=== PATIENT | male | born 1995 | race Caucasian/White ===

== ENCOUNTER 2021-05-30 14:36 | Outpatient (CLI) | payer OTHER, SELFPAY ==
[2021-05-30 15:17] LABS: Appearance Urine Clear (Clear); Basophils Absolute Auto 0.1 K/mm3 (0.0-0.1); Basophils Percent Auto 0.8 % (0.2-1.2); Bilirubin Urine 1+ (Negative); Blood Urine Negative (Negative); Color Urine Yellow (Yellow); Eosinophils Absolute Auto 0.1 K/mm3 (0-0.3); Eosinophils Percent Auto 1.1 % (0-4.4); Glucose Urine UA Negative (Negative); Hematocrit 48.2 % (42.0-52.0); Hemoglobin 16.5 g/dL (14.0-18.0); Immature Granulocyte Absolute 0.01 K/mm3 (0.00-0.031); Immature Granulocyte Percent A 0.2 % (0-0.5); Ketones Urine Negative (Negative); Leukocyte Esterase Ur Negative LEU/UL (Negative); Lymphocytes Absolute Auto 1.56 K/mm3 (0.9-3.2); Lymphocytes Percent Auto 23.7 % (18.3-44.2); Mean Corpuscular HGB Conc 34.2 g/dl (32-36); Mean Corpuscular Hemoglobin 32.5 pg (26-34); Mean Corpuscular Volume 94.9 fl (80-100); Mean Platelet Volume 9.3 fl (7.4-10.4); Monocytes Absolute Auto 0.6 K/mm3 (0.1-0.6); Monocytes Percent Auto 8.8 % (2.6-8.5); Neutrophils Absolute Auto 4.3 K/mm3 (1.3-6.7); Neutrophils Percent Auto 65.4 % (45.5-73.1); Nitrate Urine Negative (Negative); Platelet Count Result 277 k/mm3 (150-375); Protein Urine Negative (Negative); Red Blood Count 5.08 M/mm3 (4.6-6.20); Red Cell Distribution Width 11.4 % (11.5-14.5); Specific Grav Ur 1.025 (1.001-1.035); White Blood Count 6.6 K/mm3 (4.5-10.0)
[2021-05-30 15:27] LABS: Alanine Aminotransferase 25 U/L (4-50); Albumin Level 4.9 g/dL (3.5-5.1); Alkaline Phosphatase 63 U/L (38-126); Anion Gap 8 mmol/L (8-16); Aspartate Amino Transferase 29 U/L (17-59); Bilirubin,Total 1.6 mg/dL (0.2-1.3); Blood Urea Nitrogen 10 mg/dL (9-20); Calcium 8.8 mg/dL (8.4-10.2); Carbon Dioxide 31 mmol/L (22-30); Chloride 103 mmol/L (98-107); Cholesterol 159 mg/dL (0-200); Estimated Glomerular Filt Rate > 60; Glucose 92 mg/dL (65-110); HDL Direct 43 mg/dL; Potassium 3.3 mmol/L (3.4-5.0); Sodium 142 mmol/L (137-145); Triglycerides 174 mg/dL (<150)
[2021-05-30 15:31] LABS: Hemoglobin A1C 4.5 % (<5.7)
[2021-05-30 15:38] LABS: LDL Cholesterol Direct 79 mg/dL
[2021-05-30 16:16] LABS: Add Urine Microscopic? NO
[2021-05-30 16:32] LABS: Folic Acid 5.7 ng/mL (2.76->20)
[2021-05-30 18:10] LABS: Free T4 Free Thyroxine 1.11 ng/mL (0.78-2.19)
[2021-05-30 18:26] LABS: Vitamin D 25 Hydroxy < 12.8 ng/mL
[2021-06-04 21:38] LABS: Intrinsic Factor Blocking Ab Negative (Negative)
== END 2021-05-30 14:37 | disposition home or self-care (01) ==
LOC: ANHLAB 14:38
PROVIDERS: PCP Internal Medicine; Visit Provider Internal Medicine
DX: Z51.81 Encounter for therapeutic drug level monitoring (principal); Z79.899 Other long term (current) drug therapy; Z13.29 Encounter for screening for other suspected endocrine disorder; Z13.220 Encounter for screening for lipoid disorders; Z13.1 Encounter for screening for diabetes mellitus
CPT/HCPCS: 36415; 80053; 80061; 81001; 81003; 82306; 82607; 82746; 83036; 84439; 84443; 85025; 86340